=== PATIENT | female | born 1980 | race Caucasian/White ===

== ENCOUNTER 2018-05-21 12:54 | Outpatient (REF) | payer OTHER, SELFPAY ==
--- NOTE | 2018-05-21 10:40 | PAPFT_PTH ---
PATIENT: Bruna Chi [facility]: [facility] U#:[id number] AGE/SX: 37/F ROOM: RE05/21/[address]: Aston Walls : 1980 BED: DIS: 05/21/2018 SPEC #: [id number] RECD: 05/22/18 13:09 STATUS: EDLMAR REErica #: [id number] SABA: 05/21/18 10:[address]: Aston Walls DEPT: [facility] Cytology RECD BY: Liz Collado Tissues: 1 - CX/ENDOCX FOR PAP SMEARS Procedures: PAP THIN PREP/[facility] Screening Comments: [id number] (UNSATISFACTORY FOR EVALUATION)
== END 2018-05-21 13:14 ==
LOC: NCHCN 12:54
PROVIDERS: PCP Internal Medicine; Visit Provider Internal Medicine
DX: Z12.4 Encounter for screening for malignant neoplasm of cervix (principal); Z11.51 Encounter for screening for human papillomavirus (HPV); Z01.419 Encounter for gynecological examination (general) (routine) without abnormal findings; R85.615 Unsatisfactory cytologic smear of anus
CPT/HCPCS: 88142; 87624

== ENCOUNTER 2018-10-21 15:54 | Outpatient (REF) | payer OTHER, SELFPAY ==
--- NOTE | 2018-10-21 15:30 | PAPFT_PTH ---
PATIENT: Bruna Chi LOC: [facility] U#:[id number] AGE/SX: 38/F ROOM: RE10/21/[address]: Aston Walls : 1980 BED: DIS: 10/21/2018 SPEC #: [id number] RECD: 10/22/18 12:49 STATUS: DELMAR REErica #: [id number] SABA: 10/21/18 15:[address]: Aston Walls DEPT: [facility] Cytology RECD BY: iLz Collado Tissues: 1 - CX/ENDOCX FOR PAP SMEARS Procedures: PAP THIN PREP/[facility] Screening HPV DNA PROBE Comments: [id number]
[2018-10-21 21:46] LABS: Anion Gap 11.1 mmol/L (3-11); BUN 10 mg/dL (7-18); CO2 25.9 mmol/L (21.0-32.0); CREATININE 0.86 mg/dL (0.55-1.02); Calcium 8.6 mg/dL (8.5-10.1); Chloride 104 mmol/L (98-107); Glucose 81 mg/dL (70-100); LDL CHOLESTEROL 107 mg/dL (<100); Potassium 3.7 mmol/L (3.5-5.1); Sodium 141 mmol/L (136-145)
[2018-10-21 22:08] LABS: TSH 0.65 uIU/mL (0.36-3.74)
== END 2018-10-21 16:14 ==
LOC: NCHCN 15:54
PROVIDERS: PCP Internal Medicine; Visit Provider Internal Medicine
DX: R03.0 Elevated blood-pressure reading, without diagnosis of hypertension (principal); Z12.4 Encounter for screening for malignant neoplasm of cervix; Z11.51 Encounter for screening for human papillomavirus (HPV); Z01.419 Encounter for gynecological examination (general) (routine) without abnormal findings
CPT/HCPCS: 80048; 83721; 88142; 84443; 87624

== ENCOUNTER 2020-06-15 18:50 | Outpatient (REF) | payer OTHER, SELFPAY ==
[2020-06-15 19:16] LABS: HCT 36.6 % (36.0-46.0); HGB 12.3 g/dL (11.2-15.7); MCH 29.7 pg (27.0-33.0); MCHC 33.6 % (32.0-36.0); MCV 88.4 fL (80-95); MPV 9.6 fL (8.0-11.0); Platelet Count 566 10^3/uL (130-400); RBC 4.14 10^6/uL (3.93-5.22); RDW 12.3 % (11.7-14.6); RDW-SD 39.9 fL
[2020-06-16 17:35] LABS: FSH 9.9 mIU/mL (See Note); LH 7.1 mIU/mL (See Note); Prolactin 5.8 ng/mL (See Table)
== END 2020-06-15 18:51 | disposition home or self-care (01) ==
LOC: NCHCN 18:50
PROVIDERS: PCP Internal Medicine; Visit Provider Internal Medicine
DX: N92.4 Excessive bleeding in the premenopausal period (principal); N92.5 Other specified irregular menstruation
CPT/HCPCS: 85027; 83001; 83002; 84146

== ENCOUNTER 2021-06-18 17:33 | Outpatient (REF) | payer OTHER, SELFPAY ==
--- OUTSIDE RECORDS SUMMARY | 2021-06-18 17:36 | XMS_ITS ---
:1980 Author Care Team Providers Name Role Phone ESTEFANIA HARRISON MD General Surgeon [phone] ASHLEIGH MACHUCA MD Primary Care Provider [phone] Allergies Code Code System Name Reaction Severity Status Onset NKDA ? Medications Name Status Start Date Stop Date ? ? amlodipine 5 mg tablet Completed ? benzonatate 100 mg capsule Completed ? 06/23 hydrochlorothiazide 25 mg tablet Completed ? 06/23/2020 hydrocodone 5 mg-acetaminophen 325 Completed ? 06/23/2020 mg tablet ProAir HFA 90 mcg/actuation aerosol inhaler Active 08/29 Not available Inhale 2 puffs 4 times a day by inhalation route as needed. zolpidem 5 mg tablet Completed ? 06/23/2020 one tablet at bedtime as needed for severe insomnia Problems Name Status Onset Date Source ? Hypertensive Disorder Active 06/08/2018 ? Asthma Active 06/08/2018 ? Crohn's Disease Active 06/08/2018 ? 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 Family History of Breast Cancer Active 06/08/2018 ? Specialized Medical Examination Unknown ? History Procedures Date Name Performed by ? 09/08/2020 Hysteroscopy Biopsy Information not avai lable 09/03/2018 Colonoscopy Information not avai lable Notes: normal colonoscopy ; two separate fistulas in ano with endoscopically quiet Crohn's disease 06/27/2020 US, Pelvis, Transabdominal + [facility] Radiology (Internal) Transvaginal [address] [place] [address] (Work Place) Results Lab Results Date Name Specimen Result Interpretation Description Value Range Status Address ? 09/08/2020 UR ? Hcgu negative negative Final [facility] Test, Urine [facility] (Internal) : [address] 09/08/2020 Pathology TISS ? Report (see ? Final No rt Country Study below) [facility] (Internal) : [address] 08/15/2020 Pathology TISS ? Report (see ? Final No rth Country Study below) [facility] (Internal) : [address] 09/03/2018 Pathology TISS - Report results ? Final N orth Country Study below [facility] (Internal) : [address] Past Encounters 08/22/2020 Polyp of Corpus Uteri; Pre-surgery Evalu ation Virginie Jean-Baptiste MD: [address] [place] [phone], Ph. 08/15/2020 Irregular Periods Virginie Jean-Baptiste MD: [address] [place] [phone], Ph. 08/08/2020 Virginie Jean-Baptiste MD: [address] [place] [phone], Ph. 06/27/2020 Irregular Periods Virginie Jean-Baptiste MD: [address] [place] [phone], Ph. Social History Tobacco Smoking Status Never Smoker Vaccine List Vaccine Type COVID-19, mRNA, LNP-S, PF, 100 mcg/0.5 m L dose (Moderna) 06/21/2020?100 mcg 07/25/2020 Tdap 12/05/2006 Plan of Care Reminders Provider Appointments None ? ? recorded. Lab None ? ? recorded. Referral None ? ? recorded. Procedures None ? ? recorded. Surgeries None ? ? recorded. Imaging None ? ? recorded. Vitals 08/15/2020 09:10AM Office 30 Height Weight BMI 167.64 cm 62.6 kg 22.3 kg/m2 08/08/2020 09:20AM Office 30 Height Weight BMI 167.64 cm 63.96 kg 22.8 kg/m2 06/27/2020 09:50AM New Patient 30 Weight Blood Pressure 66.68 kg 120/70 mm[Hg] 05/22/2018 Height Weight BMI Blood Pressure 166.37 cm 67.13 kg 24.3 kg/m2 139/94 mm[Hg] 01/31/2014 Height Weight Blood Pressure 167.01 cm 66.72 kg 128/78 mm[Hg] 08/04/2012 Height Weight Blood Pressure 165.1 cm 65 kg 120/60 mm[Hg] 08/01/2011 Height Weight Blood Pressure 165.1 cm 62.14 kg 126/60 mm[Hg] 02/07/2009 Weight Blood Pressure 63.96 kg 110/62 mm[Hg] 12/08/2007 Weight Blood Pressure 64.86 kg 120/70 mm[Hg] 12/05/2006 Weight Blood Pressure 62.6 kg 120/60 mm[Hg] 12/03/2005 Height Weight Blood Pressure 165.1 cm 62.6 kg 130/74 mm[Hg]
[2021-06-18 19:26] LABS: Bilirubin Negative (Negative); Blood Trace-intact (Negative); Clarity Clear (Clear); Glucose Negative (Negative); Ketones Negative (Negative); Leukocyte Esterase Negative (Negative); Nitrite Negative (Negative); Specific Gravity 1.015 (1.005-1.025); Urobilinogen 0.2 EU/dL (Up TO 0.2); pH 5.5 (5-8)
[2021-06-18 19:33] LABS: Bacteria Negative HPF (Negative); C & S Indicated? No; Casts Negative LPF (Negative); Crystals Negative HPF (Negative); Epithelial Cells Few HPF (Negative); Mucus Negative (Negative); RBC 0-2 HPF (0-2); WBC 0-2 HPF (0-5)
[2021-06-18 20:11] LABS: Anion Gap 10.9 mmol/L (3-11); BUN 6 mg/dL (7-18); CO2 24.1 mmol/L (21.0-32.0); CREATININE 0.8 mg/dL (0.55-1.02); Calcium 8.9 mg/dL (8.5-10.1); Calculated LDL 112 mg/dL (<100); Chloride 103 mmol/L (98-107); Cholesterol 236 mg/dL (<200); Glucose 95 mg/dL (74-106); HDL Cholesterol 105 mg/dL (40-60); Potassium 4.1 mmol/L (3.5-5.1); Sodium 138 mmol/L (136-145); TSH 1.13 uIU/mL (0.36-3.74); Triglyceride 95 mg/dL (<150)
== END 2021-06-18 17:34 | disposition home or self-care (01) ==
LOC: NCHCN 17:33
PROVIDERS: PCP Internal Medicine; Visit Provider Internal Medicine
DX: Z00.00 Encounter for general adult medical examination without abnormal findings (principal); R03.0 Elevated blood-pressure reading, without diagnosis of hypertension; J45.20 Mild intermittent asthma, uncomplicated
CPT/HCPCS: 80048; 80061; 81003; 81015; 84443

== ENCOUNTER 2023-06-23 13:07 | Outpatient (REF) | payer OTHER, SELFPAY ==
[2023-06-23 19:04] LABS: HCT 40.6 % (36.0-46.0); HGB 13.4 g/dL (11.2-15.7); MCH 30.2 pg (27.0-33.0); MCV 92 fL (80-95); MPV 10.1 fL (8.0-11.0); Platelet Count 521 10^3/uL (130-400); RBC 4.43 10^6/uL (3.93-5.22); RDW 13.2 % (11.7-14.6); RDW-SD 45.2 fL
== END 2023-06-23 13:08 | disposition home or self-care (01) ==
LOC: NCHCN 13:07
PROVIDERS: PCP Internal Medicine; Visit Provider Internal Medicine
DX: N92.0 Excessive and frequent menstruation with regular cycle (principal)
CPT/HCPCS: 85027; 84146; 84443

== ENCOUNTER 2024-07-19 14:18 | Outpatient (REF) | payer OTHER, SELFPAY ==
[2024-07-19 19:08] LABS: HCT 44.6 % (36.0-46.0); HGB 14.6 g/dL (11.2-15.7); MCH 30.9 pg (27.0-33.0); MCHC 32.7 % (32.0-36.0); MCV 94 fL (80-95); MPV 9.6 fL (8.0-11.0); Platelet Count 487 10^3/uL (130-400); RBC 4.73 10^6/uL (3.93-5.22); RDW 11.9 % (11.7-14.6); RDW-SD 41.6 fL; WBC 9.46 10^3/uL (4.4-10.8)
[2024-07-19 19:12] LABS: ALT 12 U/L (14-59); AST 24 U/L (15-37); Albumin 4.3 g/dL (3.4-5.0); Alkaline Phosphatase 68 U/L (46-116); Anion Gap 7.7 mmol/L (3-11); BUN 8 mg/dL (7-18); Bilirubin, Total 0.8 mg/dL (0.2-1.0); CO2 27.3 mmol/L (21.0-32.0); Calcium 9.2 mg/dL (8.5-10.1); Chloride 103 mmol/L (98-107); Glucose 93 mg/dL (74-106); Potassium 4.5 mmol/L (3.5-5.1); Sodium 138 mmol/L (136-145); Total Protein 8.5 g/dL (6.4-8.2)
[2024-07-19 19:28] LABS: C-Reactive Protein < 0.50 mg/dL (<or=0.5)
[2024-07-21 10:20] LABS: Hepatitis C Ab w Rflx HCV PCR Negative (Negative)
[2024-07-21 10:42] LABS: HIV-1/2 Ag & Ab Screen Negative (Negative)
== END 2024-07-19 14:19 | disposition home or self-care (01) ==
LOC: NCHCN 14:18
PROVIDERS: PCP Internal Medicine; Visit Provider Internal Medicine
DX: Z00.00 Encounter for general adult medical examination without abnormal findings (principal); K50.90 Crohn's disease, unspecified, without complications
CPT/HCPCS: 80053; 85027; 86803; 87389; 86140